=== PATIENT | male | born 1960 | race Caucasian/White ===

== ENCOUNTER → 2016-07-15 | Outpatient (CLI) | payer OTHER | END | disposition home or self-care (01) | LOC: RAD.S 11:30 | DX: D46.9 Myelodysplastic syndrome, unspecified (principal); E11.9 Type 2 diabetes mellitus without complications; R53.83 Other fatigue; E78.5 Hyperlipidemia, unspecified; G31.9 Degenerative disease of nervous system, unspecified ==